=== PATIENT | female | born 2000 | race Caucasian/White ===

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

== ENCOUNTER 2023-06-05 03:20 | Emergency (ER) | payer OTHER, SELFPAY ==
--- NOTE | ~2023-06-05 | CT_ITS ---
CT of the Abdomen and Pelvis: Indication: Abdominal pain Technique: 2.5 mm axial scans were obtained through the abdomen and pelvis following intravenous adm inistration of 90 cc of Omnipaque 350. Dose reduction technique was used on this scan by utilizing au tomated exposure control and iterative reconstruction technique. The dose-length product (DLP) was 20 4.18 mGy-cm. Findings: Scans through the lung bases demonstrate 3 mm right lower lobe pulmonary nodule.. The liver, spleen, pancreas, gallbladder, adrenals and kidneys are within normal limits. No evidence of aortic aneurysm. No lymphadenopathy. No bowel obstruction or bowel wall thickening. There is no evidence to suggest acute appendicitis. Images through the pelvis were performed. Urinary bladder unremarkable. IUD in place. No adnexal mass seen otherwise. Trace free fluid within the pelvis. Impression: Trace free fluid in the pelvis, nonspecific. 3 mm right lower lobe pulmonary nodule. According to Fleischner Society criteria, for a low-risk adiel ent, no further follow-up required. For a high-risk patient, consider 12 month follow-up CT. Reviewed, dictated and finalized at [facility]. Impression: Trace free fluid in the pelvis, nonspecific. 3 mm right lower lobe pulmonary nodule. According to Fleischner Society criteri a, for a low-risk patient, no further follow-up required. For a high-risk patie nt, consider 12 month follow-up CT.
[2023-06-05 03:26] VITALS: BP 124/78; PULSE 80; RESP 15; TEMP 36.7; O2SAT 100
[2023-06-05 04:04] LABS: Basophils Absolute Auto 0.1 K/mm3 (0.0-0.1); Basophils Percent Auto 0.6 % (0.2-1.2); Eosinophils Absolute Auto 0.2 K/mm3 (0-0.3); Eosinophils Percent Auto 1.5 % (0-4.4); Hematocrit 40.6 % (37.0-47.0); Hemoglobin 13.8 g/dL (12.0-15.0); Immature Granulocyte Absolute 0.05 K/mm3 (0.00-0.031); Immature Granulocyte Percent A 0.4 % (0-0.5); Lymphocytes Absolute Auto 2.94 K/mm3 (0.9-3.2); Lymphocytes Percent Auto 21.7 % (18.3-44.2); Mean Corpuscular Hemoglobin 32.2 pg (26-34); Mean Corpuscular Volume 94.6 fl (80-100); Mean Platelet Volume 10.6 fl (7.4-10.4); Monocytes Percent Auto 7.4 % (2.6-8.5); Neutrophils Absolute Auto 9.3 K/mm3 (1.3-6.7); Neutrophils Percent Auto 68.4 % (45.5-73.1); Platelet Count Result 370 k/mm3 (150-375); Red Blood Count 4.29 M/mm3 (4.2-5.4); Red Cell Distribution Width 12.8 % (11.5-14.5); White Blood Count 13.6 K/mm3 (4.5-10.0)
[2023-06-05 04:11] LABS: Appearance Urine Cloudy (Clear); Bacteria Urine None Seen /hpf; Bilirubin Urine Negative (Negative); Blood Urine 1+ (Negative); Color Urine Yellow (Yellow); Glucose Urine UA Negative (Negative); Ketones Urine Negative (Negative); Leukocyte Esterase Ur Negative LEU/UL (Negative); Nitrate Urine Negative (Negative); Non Pathogenic Casts 0-2; Protein Urine Negative (Negative); Specific Grav Ur 1.017 (1.001-1.035); Squamous Epithelial Cell Urine None Seen /hpf (Few); WBC Urine 0-5 /hpf (0-3)
[2023-06-05 04:15] LABS: Add Urine Microscopic? YES; Alanine Aminotransferase 12 U/L (6-35); Albumin Level 4.8 g/dL (3.5-5.1); Alkaline Phosphatase 66 U/L (38-126); Anion Gap 8 mmol/L (8-16); Aspartate Amino Transferase 22 U/L (14-36); Bilirubin,Total 0.4 mg/dL (0.2-1.3); Blood Urea Nitrogen 13 mg/dL (7-17); Calcium 9.4 mg/dL (8.4-10.2); Carbon Dioxide 25 mmol/L (22-30); Chloride 106 mmol/L (98-107); Estimated CRCL calculation 98 ml/min; Estimated Glomerular Filt Rate > 60; Glucose 106 mg/dL (65-110); Potassium 3.6 mmol/L (3.4-5.0); Sodium 139 mmol/L (137-145)
--- NOTE | 2023-06-05 05:05 | ED.GENADULT ---
HPI - General Adult General Chief complaint: Vaginal Bleeding Stated complaint: vaginal bleeding Time Seen by Provider: 06/05/23 03:55 History of Present Illness HPI narrative: Patient 22-year-old female who presents emergency department with chief complaint of vaginal bleeding. The patient reports that she has an IUD normally has fairly light periods patient states that she started having heavy bleeding today and saturated 3 tampons. The patient states that she is having some cramping in the pelvis patient states that she is concerned that maybe her IUD is displaced or there is another issue. The patient reports that she does not believe that she is . Related Data Home Medications Medication Instructions Recorded Confirmed ampicillin 500 mg capsule 500 mg PO BID 06/03/20 06/03/20 Allergies Allergy/AdvReac Type Severity Reaction Status Date / Time No Known Allergies Allergy Verified 06/05/23 03:39 Review of Systems Review of Systems: A 10 system review of systems was completed on the patient and is negative except for what is stated in the HPI. Nursing and ancillary documentation was reviewed. Exam Narrative: GENERAL: Well-appearing, well-nourished, and in no acute distress. HEAD: Normocephalic, atraumatic. EYES: PERRLA and EOMI. ENT: Nares clear, no rhinorrhea or epistaxis. Mucous membranes moist. NECK: Supple. CHEST: Clear to auscultation. No respiratory distress. HEART: Regular rate and rhythm. No murmur heard. Normal peripheral pulses. ABDOMEN: Soft, nontender, nondistended, normal active bowel sounds. : Pelvic exam was performed showed minimal blood in the vault IUD strings were present, no laceration present EXTREMITIES: Normal range of motion. No edema. SKIN: Warm, dry, no rash. NEURO: No focal deficits. Alert and oriented x3. PSYCH: Normal mood and affect. Course Vital Signs Vital signs: Vital Signs Temperature 36.7 C 06/05/23 03:26 Pulse Rate 80 06/05/23 03:26 Respiratory Rate 15 06/05/23 03:26 Blood Pressure 124/78 06/05/23 03:26 Pulse Oximetry 100 06/05/23 03:26 Temperature 36.7 C 06/05/23 03:26 Pulse Rate 80 06/05/23 03:26 Respiratory Rate 15 06/05/23 03:26 Blood Pressure 124/78 06/05/23 03:26 Pulse Oximetry 100 03/13/24 03:26 Medical Decision Making MDM Narrative Medical decision making narrative: Differential diagnosis includes displacement of IUD, dysfunctional uterine bleeding, ectopic , intrauterine test was negative Laboratory studies were obtained showed white count 13.6 hemoglobin was 13.8 electrolytes are within normal limits urinalysis showed no evidence UTI CT scan of the abdomen pelvis showed Trace free fluid in the pelvis, nonspecific. 3 mm right lower lobe pulmonary nodule. According to Fleischner Society criteria, for a low-risk patient, no further follow-up required Vital Signs Vital Signs: Vital Signs Temperature 36.7 C 06/05/23 03:26 Pulse Rate 80 06/05/23 03:26 Respiratory Rate 15 06/05/23 03:26 Blood Pressure 124/78 06/05/23 03:26 Pulse Oximetry 100 06/05/23 03:26 Temperature 36.7 C 06/05/23 03:26 Pulse Rate 80 06/05/23 03:26 Respiratory Rate 15 06/05/23 03:26 Blood Pressure 124/78 06/05/23 03:26 Pulse Oximetry 100 06/05/23 03:26 Lab Data 06/05/23 03:58 06/05/23 03:58 Labs: Lab Results 06/05/23 Range/Units 03:58 WBC 13.6 H (4.5-10.0) K/mm3 RBC 4.29 (4.2-5.4) M/mm3 Hgb 13.8 (12.0-15.0) g/dL Hct 40.6 (37.0-47.0) % MCV 94.6 (80-100) fl MCH 32.2 (26-34) pg MCHC 34.0 (32-36) g/dl RDW 12.8 (11.5-14.5) % Plt Count 370 (150-375) k/mm3 MPV 10.6 H (7.4-10.4) fl Immature Gran % (Auto) 0.4 (0-0.5) % Neut % (Auto) 68.4 (45.5-73.1) % Lymph % (Auto) 21.7 (18.3-44.2) % [place] % (Auto) 7.4 (2.6-8.5) % Eos % (Auto) 1.5 (0-4.4) % Baso % (Auto) 0.6
[2023-06-05 06:20] VITALS: BP 128/76; PULSE 84; RESP 16; O2SAT 100
== END 2023-06-05 06:20 | disposition home or self-care (01) ==
PROVIDERS: Emergency Provider Emergency Medicine
DX: N93.9 Abnormal uterine and vaginal bleeding, unspecified (principal)
CPT/HCPCS: 36415; 74177; 80053; 81025; 85025; 99284; Q9967